=== PATIENT | female | born 1950 | race Caucasian/White ===

== ENCOUNTER → 2017-10-03 | Outpatient (CLI) | payer OTHER ==
[~2017-10-03] MED LIST: DIOVAN160 M1
== END | disposition home or self-care (01) ==
LOC: MRI 11:52
DX: M25.561 Pain in right knee (principal)
CPT/HCPCS: 73721

== ENCOUNTER 2017-10-04 12:10 | Outpatient (CLI) | payer OTHER | END 2017-10-04 12:13 | disposition home or self-care (01) | LOC: MAMO-SONO 12:10 | DX: Z12.31 Encounter for screening mammogram for malignant neoplasm of breast (principal); N62 Hypertrophy of breast ==

== ENCOUNTER 2017-10-05 08:06 | Outpatient (CLI) | payer OTHER | END 2017-10-05 08:20 | disposition home or self-care (01) | LOC: LAB 08:06 | DX: I10 Essential (primary) hypertension (principal); E11.9 Type 2 diabetes mellitus without complications; E03.8 Other specified hypothyroidism; E78.2 Mixed hyperlipidemia; K92.1 Melena; D64.0 Hereditary sideroblastic anemia; M81.0 Age-related osteoporosis without current pathological fracture ==

== ENCOUNTER → 2017-10-05 | Outpatient (CLI) | payer OTHER | END | disposition home or self-care (01) | LOC: NUCLEAR 11:02 | DX: M81.0 Age-related osteoporosis without current pathological fracture (principal) ==

== ENCOUNTER 2017-10-12 11:37 | Outpatient (CLI) | payer OTHER | END 2017-10-12 11:49 | disposition home or self-care (01) | LOC: NUCLEAR 11:37 | DX: I87.2 Venous insufficiency (chronic) (peripheral) (principal) ==

== ENCOUNTER → 2017-10-22 | Outpatient (CLI) | payer OTHER | END | disposition home or self-care (01) | LOC: RAD 14:02 | DX: M76.61 Achilles tendinitis, right leg (principal); M25.561 Pain in right knee ==

== ENCOUNTER 2018-01-14 15:18 | Outpatient (CLI) | payer OTHER | END 2018-01-14 15:26 | disposition home or self-care (01) | LOC: RAD 15:18 | DX: Z01.818 Encounter for other preprocedural examination (principal); R07.89 Other chest pain ==

== ENCOUNTER 2018-01-15 07:45 | Outpatient (CLI) | payer OTHER | END 2018-01-15 15:00 | disposition home or self-care (01) | LOC: LAB 07:45 | DX: E78.2 Mixed hyperlipidemia (principal); N39.0 Urinary tract infection, site not specified; D68.8 Other specified coagulation defects ==

== ENCOUNTER 2018-01-15 07:49 | Outpatient (CLI) | payer OTHER | END 2018-01-15 15:00 | disposition home or self-care (01) | LOC: EKG 07:49 | DX: I10 Essential (primary) hypertension (principal) ==

== ENCOUNTER 2020-04-22 11:29 | Outpatient (CLI) | payer OTHER | END 2020-04-22 11:55 | disposition home or self-care (01) | LOC: LAB 11:29 | PROVIDERS: ATTEND Internal Medicine Cardiovascular Disease | DX: I10 Essential (primary) hypertension (principal); E11.9 Type 2 diabetes mellitus without complications; E03.8 Other specified hypothyroidism; E78.2 Mixed hyperlipidemia; Z12.11 Encounter for screening for malignant neoplasm of colon; E55.9 Vitamin D deficiency, unspecified ==

== ENCOUNTER 2021-04-20 08:26 | Outpatient (CLI) | payer OTHER | END 2021-04-20 08:27 | disposition home or self-care (01) | LOC: SONOGRAMA 08:26 | PROVIDERS: ATTEND Specialist | DX: N61.0 Mastitis without abscess (principal) ==

== ENCOUNTER → 2021-05-09 | Outpatient (CLI) | payer OTHER | END | disposition home or self-care (01) | LOC: MAMO-SONO 13:10 | PROVIDERS: ATTEND Specialist | DX: N61.0 Mastitis without abscess (principal) ==

== ENCOUNTER 2021-11-18 10:49 | Outpatient (CLI) | payer OTHER | END 2021-11-18 10:51 | disposition home or self-care (01) | LOC: NUCLEAR 10:49 | PROVIDERS: ATTEND Internal Medicine Cardiovascular Disease | DX: I10 Essential (primary) hypertension (principal) ==

== ENCOUNTER 2022-02-27 15:33 | Outpatient (CLI) | payer OTHER | END 2022-02-27 15:36 | disposition home or self-care (01) | LOC: LAB 15:33 | PROVIDERS: ATTEND Internal Medicine Cardiovascular Disease | DX: I10 Essential (primary) hypertension (principal); E11.9 Type 2 diabetes mellitus without complications; E03.9 Hypothyroidism, unspecified; E78.2 Mixed hyperlipidemia; Z12.11 Encounter for screening for malignant neoplasm of colon; E55.9 Vitamin D deficiency, unspecified ==

== ENCOUNTER 2022-04-03 14:08 | Emergency (ER) | payer OTHER ==
[~2022-04-03] VITALS: Ht 167.6 cm; Wt 98.0 kg
== END 2022-04-03 17:12 | disposition home or self-care (01) ==
LOC: ER 14:08
DX: S49.91XA Unspecified injury of right shoulder and upper arm, initial encounter (principal); W19.XXXA Unspecified fall, initial encounter; Y93.9 Activity, unspecified; Y92.9 Unspecified place or not applicable

== ENCOUNTER 2022-04-12 12:14 | Outpatient (CLI) | payer OTHER | END 2022-04-12 12:18 | disposition home or self-care (01) | LOC: SONOGRAMA 12:14 | PROVIDERS: ATTEND Physical Medicine & Rehabilitation Hospice and Palliative Medicine | DX: M25.511 Pain in right shoulder (principal); M75.101 Unspecified rotator cuff tear or rupture of right shoulder, not specified as traumatic ==

== ENCOUNTER 2022-07-26 14:29 | Outpatient (CLI) | payer OTHER | END 2022-07-26 14:39 | disposition home or self-care (01) | LOC: RAD 14:29 | PROVIDERS: ATTEND Orthopaedic Surgery | DX: R07.9 Chest pain, unspecified (principal) ==

== ENCOUNTER → 2022-07-31 11:28 | Outpatient (CLI) | payer OTHER | END | disposition home or self-care (01) | LOC: LAB 11:28 | PROVIDERS: ATTEND Internal Medicine | DX: Z20.822 Contact with and (suspected) exposure to COVID-19 (principal) ==

== ENCOUNTER 2023-01-05 13:53 | Emergency (ER) | payer OTHER ==
[~2023-01-05] VITALS: Ht 167.6 cm; Wt 117.9 kg
== END 2023-01-05 18:13 | disposition home or self-care (01) ==
LOC: ER
DX: M25.561 Pain in right knee (principal); S49.81XA Other specified injuries of right shoulder and upper arm, initial encounter; W18.2XXA Fall in (into) shower or empty bathtub, initial encounter; Y93.F1 Activity, caregiving, bathing; Y92.012 Bathroom of single-family (private) house as the place of occurrence of the external cause

== ENCOUNTER → 2023-03-27 08:21 | Outpatient (CLI) | payer OTHER ==
[2023-03-27 09:12] LABS: HEMOGLOBIN 15.2 g/dL (12.0-15.00); MEAN CELL VOLUME 87.7 fL (80.00-100.00); MEAN CORPUSCULAR HEMOGLOBIN 29.6 pg (27.00-32.0); MEAN CORPUSCULAR HGB CONC 33.8 g/dl (32.0-36.0); PLATELET COUNT 245 K/uL (150-450); RED BLOOD COUNT 5.14 M/uL (4.00-6.00); RED CELL DISTRIBUTION WIDTH 13.9 % (11.5-14.5)
[2023-03-27 09:22] LABS: PH,URINE 5.5 (5.0-8.0); URINE APPEARANCE Cloudy; URINE BILIRRUBIN Negative (NEGATIVE); URINE BLOOD Moderate; URINE COLOR Yellow; URINE GLUCOSE Negative (NEGATIVE); URINE LEUKOCYTE Moderate; URINE NITRATE Positive; URINE PROTEIN Negative (NEGATIVE); URINE UROBILINOGEN 0.2 E.U./dl
[2023-03-27 09:25] LABS: URINE EPITHELIAL CELLS 2.7 uL (0.0-38.8); URINE RBC 44.4 uL (0.0-20.8); URINE WBC 608.8 uL (0.0-23.2)
[2023-03-27 10:05] LABS: URINE BACTERIA > 9821.5 uL (0.0-1933)
[2023-03-27 10:09] LABS: ALBUMIN 3.9 gm/dL (3.4-5.0); BILIRUBIN TOTAL 0.66 mg/dL (0.3-1.2); CALCIUM 10.1 mg/dL (8.5-10.1); CHOL HDL RATIO 3.9 (0-5.0); CREATININE SERUM 0.76 mg/dL (0.55-1.02); GFR 74.81; GLOBULINA 3.3 G/DL (2.4-3.5); POTASSIUM 3.66 mEq/L (3.5-5.1); T4 TOTAL 9.57 UG/DL (4.8-13.9); TOTAL PROTEIN 7.2 gm/dL (6.4-8.2)
[2023-03-27 10:22] LABS: TSH 0.215 uIU/mL (0.358-3.74)
[2023-03-28 11:23] LABS: T3 TOTAL 1.21 ng/ml (0.846-2.02); VITAMIN D3 25 HYDROXY 25.97 ng/ml (30-120)
== END | disposition home or self-care (01) ==
LOC: LAB 08:21
PROVIDERS: ATTEND Internal Medicine Cardiovascular Disease
DX: I10 Essential (primary) hypertension (principal); E11.9 Type 2 diabetes mellitus without complications; E03.9 Hypothyroidism, unspecified; E78.2 Mixed hyperlipidemia; Z12.11 Encounter for screening for malignant neoplasm of colon; E55.9 Vitamin D deficiency, unspecified; N39.0 Urinary tract infection, site not specified

== ENCOUNTER 2024-07-29 11:59 | Outpatient (CLI) | payer OTHER ==
[~2024-07-29 11:59] MED LIST changes: +AVAPRO300 MG PO; +VAZALORE81 MG PO
[2024-07-29 12:38] LABS: BASO % 0.9 % (0.1-1.2); EOS # 0.16 (0.04-0.54); EOS % 2.5 % (0.7-7.0); HEMATOCRIT 47.2 % (34.1-44.9); HEMOGLOBIN 15.8 g/dL (11.2-15.7); LYMPH # 2.63 (1.18-3.74); LYMPH % 40.5 % (19.3-53.1); MEAN CORPUSCULAR HEMOGLOBIN 29.5 pg (25.6-32.2); MONO % 7.7 % (4.7-12.5); NEUT # 3.13 (1.56-6.13); NEUT % 48.1 % (34.0-71.1); PLATELET COUNT 249 K/uL (163-369); RED BLOOD COUNT 5.36 M/uL (3.93-5.22); RED CELL DISTRIBUTION WIDTH 12.6 % (11.6-14.4)
[2024-07-29 12:41] LABS: URINE APPEARANCE Cloudy; URINE BILIRRUBIN Negative (NEGATIVE); URINE BLOOD NHT; URINE COLOR Yellow; URINE GLUCOSE Negative (NEGATIVE); URINE KETONE Negative (NEGATIVE); URINE LEUKOCYTE Moderate; URINE NITRATE Positive; URINE PROTEIN Trace (NEGATIVE); URINE UROBILINOGEN 0.2 E.U./dl
[2024-07-29 12:45] LABS: URINE EPITHELIAL CELLS 10.9 uL (0.0-38.8); URINE RBC 10.1 uL (0.0-20.8); URINE WBC 672.4 uL (0.0-23.2)
[2024-07-29 12:55] LABS: URINE BACTERIA > 9821.5 uL (0.0-1933); URINE CAST 0.88 uL (0.0-1.40)
[2024-07-29 13:42] LABS: T3 TOTAL 1.44 ng/ml (0.846-2.02); VITAMIN D3 25 HYDROXY 24.92 ng/ml (30-120)
[2024-07-29 13:45] LABS: ALBUMIN 4.1 gm/dL (3.4-5.0); BILIRUBIN TOTAL 0.79 mg/dL (0.3-1.2); CALCIUM 10.4 mg/dL (8.5-10.1); CHOL HDL RATIO 3.8 (0-5.0); CREATININE SERUM 0.74 mg/dL (0.55-1.02); GFR 76.72; GLOBULINA 3.3 G/DL (2.4-3.5); POTASSIUM 3.94 mEq/L (3.5-5.1); T4 TOTAL 11.3 UG/DL (4.8-13.9); TOTAL PROTEIN 7.4 gm/dL (6.4-8.2)
[2024-07-29 13:48] LABS: TSH 0.205 uIU/mL (0.358-3.74)
== END 2024-07-29 12:07 | disposition home or self-care (01) ==
LOC: LAB 11:59
PROVIDERS: ATTEND Internal Medicine Cardiovascular Disease
DX: I10 Essential (primary) hypertension (principal); E11.9 Type 2 diabetes mellitus without complications; E03.9 Hypothyroidism, unspecified; E78.2 Mixed hyperlipidemia; D64.0 Hereditary sideroblastic anemia; Z12.11 Encounter for screening for malignant neoplasm of colon; E55.9 Vitamin D deficiency, unspecified; M81.0 Age-related osteoporosis without current pathological fracture